=== PATIENT | male | born 1955 | race Caucasian/White ===

== ENCOUNTER 2020-08-17 09:38 | Observation (INO) ==
[2020-08-17] MEDS ORDERED: Aspirin 81 MG TAB.CHEW PO ONE (10:03)
[2020-08-17 10:14] LABS: Eosinophils # 0.1 K/mcL (0.0-0.6); Eosinophils % 0.8 %; Hematocrit 37.5 % (37.5-50.1); Hemoglobin 12.5 g/dL (12.9-16.9); Immature Granulocytes % 0.3 % (0-4); Lymphocytes # 0.7 K/mcL (0.6-4.6); Lymphocytes % 11.3 %; Mean Corpuscular HGB Conc 33.3 g/dL (31.6-35.5); Mean Corpuscular Hemoglobin 29.5 pg (28.0-33.3); Mean Corpuscular Volume 88.4 fL (83.0-100.0); Mean Platelet Volume 10.3 fL (9.4-12.4); Monocytes # 0.6 K/mcL (0.0-1.3); Monocytes % 9.3 %; Neutrophils # 4.8 K/mcL (1.6-8.9); Platelet Count 151 K/mcL (140-400); Red Blood Count 4.24 M/mcL (4.19-5.50); Red Cell Distribution Width 13.4 % (11.5-14.5); Segmented Neutrophils % 78.3 %; White Blood Count 6.1 K/mcL (4.3-11.1)
[2020-08-17 10:38] LABS: BUN/Creatinine Ratio 26 (6-26); Blood Urea Nitrogen 28 mg/dL (8-23); Calcium 8.9 mg/dL (8.6-10.3); Carbon Dioxide 25 mEq/L (23-29); Chloride 101 mEq/L (98-107); Glucose 106 mg/dL (70-105); Osmolality,Calculated 286 (280-300); Potassium 3.8 mEq/L (3.5-5.1); Sodium 135 mEq/L (136-145); eGFR For African Americans > 60 (> 60); eGFR For Non-African Americans > 60 (> 60)
[2020-08-17 10:51] LABS: Troponin I 0.03 ng/mL (< 0.04)
[2020-08-17] MEDS ORDERED: Furosemide 40 MG/4 ML VIAL IVP ONE (12:17)
[2020-08-17] MEDS ORDERED: *HR* Dextrose 50 % in Water (Vial) 50 ML VIAL IVP PRN (12:48)
[2020-08-17] MEDS ORDERED: Dextrose Gel 15 GM/37.5 ML TUBE PO PRN ×2 (12:48)
[2020-08-17] MEDS ORDERED: D5% in Water 1,000 ML IVC PRN (12:48)
[2020-08-17] MEDS ORDERED: Naloxone 0.4 MG/ML INJ IVP PRN (12:49)
[2020-08-17] MEDS ORDERED: Acetaminophen 325 MG TABLET PO PRN (12:49)
[2020-08-17] MEDS ORDERED: Nitroglycerin 0.4 MG TAB.SUBL SL PRN (12:52)
[2020-08-17 13:24] LABS: INR 3.3; Prothrombin Time 37.2 Seconds (9.4-12.1)
[2020-08-17] MEDS: carvediloL 6.25 MG TABLET PO SCH (16:22)
[2020-08-17] MEDS: Insulin LISPRO 300 UNITS/3 ML VIAL SUBQ SCH (16:22)
[2020-08-17] MEDS ORDERED: Warfarin perPT PO PRN (18:00)
[2020-08-17] MEDS ORDERED: *HR* Digoxin 0.25 MG TABLET PO SCH (21:00)
[2020-08-17] MEDS ORDERED: Insulin LISPRO 300 UNITS/3 ML VIAL SUBQ SCH (21:00)
[2020-08-17] MEDS ORDERED: lisinopriL 20 MG TABLET PO SCH (21:00)
[2020-08-17] MEDS ORDERED: Furosemide 20 MG/2 ML VIAL IVP SCH (21:00)
[2020-08-18 06:51] VITALS: BP 103/59
[2020-08-18 06:57] LABS: Hematocrit 37.4 % (37.5-50.1); Hemoglobin 12.6 g/dL (12.9-16.9); Mean Corpuscular HGB Conc 33.7 g/dL (31.6-35.5); Mean Corpuscular Hemoglobin 29.7 pg (28.0-33.3); Mean Corpuscular Volume 88.2 fL (83.0-100.0); Mean Platelet Volume 10.3 fL (9.4-12.4); Platelet Count 143 K/mcL (140-400); Red Blood Count 4.24 M/mcL (4.19-5.50); Red Cell Distribution Width 13.5 % (11.5-14.5); White Blood Count 3.9 K/mcL (4.3-11.1)
[2020-08-18 07:07] LABS: Prothrombin Time 33.3 Seconds (9.4-12.1)
[2020-08-18 08:09] LABS: BUN/Creatinine Ratio 27 (6-26); Blood Urea Nitrogen 28 mg/dL (8-23); Calcium 8.7 mg/dL (8.6-10.3); Carbon Dioxide 24 mEq/L (23-29); Chloride 105 mEq/L (98-107); Cholesterol 95 mg/dL (< 200); Glucose 127 mg/dL (70-105); HDL Cholesterol 24 mg/dL (40-59); LDL Cholesterol,Calculated 50 mg/dL (< 100); Osmolality,Calculated 293 (280-300); Potassium 3.5 mEq/L (3.5-5.1); Sodium 138 mEq/L (136-145); Triglycerides 107 mg/dL (< 150); eGFR For African Americans > 60 (> 60); eGFR For Non-African Americans > 60 (> 60)
[2020-08-18] MEDS ORDERED: Furosemide 20 MG TABLET PO SCH (08:32)
[2020-08-18] MEDS ORDERED: Aspirin 81 MG TAB.CHEW PO SCH (09:00)
[2020-08-18] MEDS: Insulin LISPRO 300 UNITS/3 ML VIAL SUBQ SCH (09:44)
[2020-08-18] MEDS: carvediloL 6.25 MG TABLET PO SCH (09:44)
[2020-08-18] MEDS ORDERED: lisinopriL 20 MG TABLET PO SCH (09:45)
[2020-08-18 10:43] LABS: Estimated Average Glucose 180 mg/dl; Hemoglobin A1C 7.9 %
== END 2020-08-18 11:40 | disposition home or self-care (01) ==
LOC: 3BNU 09:38 → EMEROOARM 09:38 → SUATTDRO 12:45 → 3BNU 13:52
PROVIDERS: ADMIT Internal Medicine; ATTEND Internal Medicine